=== PATIENT | male | born 1965 | race Caucasian/White ===

== ENCOUNTER 2016-10-04 20:22 | Emergency (ER) | payer BC ==
[2016-10-04 21:03] VITALS: BP 132/88
--- NOTE | 2016-10-04 21:18 | UC ---
Ear Complaint HPI - HPI Summary HPI Summary: Pt presents with c/o bilateral hearing loss and ear fullness. Pt has history of cerumen impaction - History of Current Complaint Chief Complaint: UCEar Stated Complaint: EARS PLUGGED Time Seen by Provider: 10/04/16 21:02 Hx Obtained From: Patient Onset/Duration: Sudden Onset, Lasting Days - 2 Severity Initially: Mild Severity Currently: Mild Associated Signs/Symptoms: Positive: Hearing Loss - Allergies/Home Medications Allergies/Adverse Reactions: Allergies Allergy/AdvReac Type Severity Reaction Status Date / Time No Known Allergies Allergy Verified 10/04/16 21:03 Home Medications: Home Medications Lisinopril TAB* [Prinivil TAB*] 5 mg PO DAILY 10/04/16 [History Confirmed ] PMH/Surg Hx/FS Hx/Imm Hx Previously Healthy: Yes - Surgical History Surgical History: Yes Surgery Procedure, Year, and Place: T&A. Hemroid removal x3 - Family History Known Family History: Positive: Cardiac Disease - Social History Occupation: Employed Full-time Lives: With Family Alcohol Use: None Substance Use Type: None Smoking Status (MU): Never Smoked Tobacco Have You Smoked in the Last Year: No Review of Systems Constitutional: Negative Skin: Negative Eyes: Negative ENT: Ear Ache - hearing loss Respiratory: Negative Cardiovascular: Negative Gastrointestinal: Negative Genitourinary: Negative Motor: Negative Neurovascular: Negative Musculoskeletal: Negative Neurological: Negative Psychological: Negative All Other Systems Reviewed And Are Negative: Yes Physical Exam Triage Information Reviewed: Yes Appearance: Well-Appearing Vital Signs: Initial Vital Signs Temp 97.6 F 10/04/16 20:56 Pulse 75 10/04/16 20:56 Resp 14 10/04/16 20:56 BP 132/88 10/04/16 20:56 Pulse Ox 99 10/04/16 20:56 Vital Signs Reviewed: Yes Eye Exam: Normal ENT Exam: Other - bialteral akbar, STEVE Vargas flushed bilateral ear with reported that large amount cerumen removed with ear irrigation Neck exam: Normal Respiratory Exam: Normal Cardiovascular Exam: Normal Musculoskeletal Exam: Normal Neurological Exam: Normal Psychological Exam: Normal Skin Exam: Normal Ear Complaint Course/Dx - Differential Dx/Diagnosis Differential Diagnosis/HQI/PQRI: Cerumen Impaction Provider Diagnoses: cerumen impaction bilateral Discharge - Discharge Plan Condition: Stable Disposition: HOME Patient Education Materials: Cerumen [place] (ED) Referrals: Doc Orellana MD [Primary Care Provider] - If Needed
== END 2016-10-04 21:42 | disposition home or self-care (01) ==
LOC: UCCORT 20:22
DX: H61.23 Impacted cerumen, bilateral (principal)
CPT/HCPCS: 99203; G0463

== ENCOUNTER 2017-05-17 09:32 | Emergency (ER) | payer BC ==
[2017-05-17 09:53] VITALS: BP 119/83
--- NOTE | 2017-05-17 10:16 | RAD ---
HISTORY: Left second toe pain COMPARISONS: None VIEWS: 3, Frontal, lateral, and oblique views of the second digit of left foot FINDINGS: BONE DENSITY: Normal. BONES: There is no displaced fracture. JOINTS: There is no arthropathy. ALIGNMENT: There is no dislocation. SOFT TISSUES: Unremarkable. OTHER FINDINGS: None. IMPRESSION: NO ACUTE OSSEOUS INJURY. IF SYMPTOMS PERSIST, RECOMMEND REPEAT IMAGING.
--- NOTE | 2017-05-17 10:27 | UC ---
Lower Extremity/Ankle HPI - HPI Summary HPI Summary: pain left 2nd toe x 2 days the toe is red , swollen tender no recent injury , had an injury to this toe few years ago and thinks it might be broken - History of Current Complaint Chief Complaint: UCLowerExtremity Stated Complaint: LEFT SECOND TOE INJURY Time Seen by Provider: 05/17/17 09:41 Hx Obtained From: Patient Onset/Duration: Gradual Onset, Lasting Days - 2, Still Present Severity Initially: Moderate Severity Currently: Moderate Pain Intensity: 2 Aggravating Factor(s): Standing, Ambulation Alleviating Factor(s): Rest, Elevation Able to Bear Weight: Yes - Allergies/Home Medications Allergies/Adverse Reactions: Allergies Allergy/AdvReac Type Severity Reaction Status Date / Time No Known Allergies Allergy Verified 05/17/17 09:50 Home Medications: Home Medications Ibuprofen 400 mg PO 05/17/17 [History] PMH/Surg Hx/FS Hx/Imm Hx Cardiovascular History: Hypertension - Surgical History Surgical History: Yes Surgery Procedure, Year, and Place: T&A. Hemroid removal x3 - Family History Known Family History: Positive: Cardiac Disease - Social History Alcohol Use: Rare Substance Use Type: None Smoking Status (MU): Never Smoked Tobacco Have You Smoked in the Last Year: No Review of Systems Constitutional: Negative Skin: Negative Eyes: Negative ENT: Negative Respiratory: Negative Cardiovascular: Negative Is Patient Immunocompromised?: No All Other Systems Reviewed And Are Negative: Yes Physical Exam Triage Information Reviewed: Yes Appearance: Well-Appearing, No Pain Distress, Well-Nourished Vital Signs: Initial Vital Signs Temp 98.6 F 05/17/17 09:45 Pulse 85 05/17/17 09:45 Resp 20 05/17/17 09:45 BP 119/83 05/17/17 09:45 Pulse Ox 98 05/17/17 09:45 Vital Signs Reviewed: Yes Eye Exam: Normal Eyes: Positive: Conjunctiva Clear ENT: Positive: Normal ENT inspection, Hearing grossly normal, Pharynx normal Neck: Positive: Supple, Nontender, No Lymphadenopathy Respiratory: Positive: Chest non-tender, Lungs clear, Normal breath sounds Cardiovascular: Positive: RRR, No Murmur, Pulses Normal Musculoskeletal Exam: Normal Skin: Positive: Other - left 2nd toe : + paronychia, + erythema, swellen , tender Lower Extremity Course/Dx - Differential Dx/Diagnosis Provider Diagnoses: paronychia left toe Discharge - Sign-Out/Discharge Documenting (check all that apply): Discharge - Discharge Plan Condition: Stable Disposition: HOME Prescriptions: Cephalexin CAP* [Keflex CAP*] 500 mg PO TID #21 cap Patient Education Materials: [place] (ED) Referrals: Doc Orellana MD [Primary Care Provider] - If Needed - Billing Disposition and Condition Condition: STABLE Disposition: HOME
== END 2017-05-17 10:27 | disposition home or self-care (01) ==
LOC: UCCORT 09:32
DX: L03.032 Cellulitis of left toe (principal)
CPT/HCPCS: 99212; G0463

== ENCOUNTER 2018-02-08 17:22 | Emergency (ER) | payer BC, OTHER ==
--- NOTE | 2018-02-08 18:05 | UC ---
Back Pain HPI - HPI Summary HPI Summary: 52-year-old male comes in to clinic today with a chief complaint of low back pain is radiating down the left leg. This started several days ago. He's had this pain on and off for years. No weakness or numbness no difficulty controlling urine or bowels. Pain gets worse when he stands straight upright or when he lays flat. It is less severe when he is slightly bent forward. No recent trauma. - History of Current Complaint Stated Complaint: LOWER BACK PAIN Time Seen by Provider: 02/08/18 17:51 - Allergies/Home Medications Allergies/Adverse Reactions: Allergies Allergy/AdvReac Type Severity Reaction Status Date / Time No Known Allergies Allergy Verified 02/08/18 18:01 Home Medications: Home Medications Allopurinol TAB* [Zyloprim 300 MG TAB*] 300 mg PO DAILY 02/08/18 [History Confirmed 02/08/18] Ibuprofen TAB* [Advil TAB*] 600 mg PO Q6H PRN 02/08/18 [History Confirmed ] PMH/Surg Hx/FS Hx/Imm Hx Previously Healthy: Yes Cardiovascular History: Hypertension - Surgical History Surgical History: Yes Surgery Procedure, Year, and Place: T&A. Hemroid removal x3 - Family History Known Family History: Positive: Cardiac Disease - Social History Alcohol Use: Rare Substance Use Type: None Smoking Status (MU): Never Smoked Tobacco Have You Smoked in the Last Year: No Review of Systems All Other Systems Reviewed And Are Negative: Yes Constitutional: Positive: Negative Skin: Positive: Negative Eyes: Positive: Negative ENT: Positive: Negative Respiratory: Positive: Negative Cardiovascular: Positive: Negative Gastrointestinal: Positive: Negative Genitourinary: Positive: Negative Motor: Positive: Negative Neurovascular: Positive: Negative Musculoskeletal: Positive: Other: - SEE HPI Neurological: Positive: Negative Psychological: Positive: Negative Is Patient Immunocompromised?: No Physical Exam Triage Information Reviewed: Yes Appearance: Well-Appearing, Well-Nourished, Pain Distress - MILD WITH LOW BACK ROM Vital Signs Reviewed: Yes Eye Exam: Normal Eyes: Positive: Conjunctiva Clear Neck exam: Normal Neck: Positive: Supple Respiratory: Positive: Lungs clear, Normal breath sounds, No respiratory distress Cardiovascular: Positive: RRR Abdomen Description: Positive: Nontender, Soft. Negative: CVA Tenderness (R), CVA Tenderness (L) Musculoskeletal: Positive: Strength Intact, ROM Intact, Other: - Patient tender to palpation lower lumbar and into the left buttock and the sciatic distribution. Feet ankles hips and knees have full range of motion and full strength no sensation deficits. Neurological Exam: Normal Neurological: Positive: Alert, Muscle Tone Normal Psychological Exam: Normal Psychological: Positive: Age Appropriate Behavior Skin Exam: Normal Back Pain Course/Dx - Differential Dx/Diagnosis Provider Diagnosis: Low back pain, Lumbar radiculopathy, Left sided sciatica Discharge - Sign-Out/Discharge Documenting (check all that apply): Patient Departure All imaging exams completed and their final reports reviewed: No Studies - Discharge Plan Condition: Stable Disposition: HOME Prescriptions: Cyclobenzaprine TAB* [Flexeril 10 MG TAB*] 10 mg PO TID PRN #15 tab MDD 3 PRN Reason: Pain Patient Education Materials: Acute Low Back Pain (ED), Lower Back Exercises (ED ), Lumbar Radiculopathy (ED), Sciatica (ED) Referrals: Axel Mcgill MD [Primary Care Provider] - Additional Instructions: FOLLOW UP WITH YOUR DOCTOR IF NOT COMPLETELY IMPROVED. GET RECHECKED FOR ANY WORSENING OF YOUR CONDITION; WEAKNESS, NUMBNESS, DIFFICULTY CONTROLLING BOWEL OR BLADDER OR QUESTIONS OR CONCERNS. - Billing Disposition and Condition Condition: STABLE Disposition: Home
[2018-02-08 18:11] VITALS: BP 120/91
== END 2018-02-08 18:15 | disposition home or self-care (01) ==
LOC: UCCORT 17:22
DX: M54.5 Low back pain (principal); M54.16 Radiculopathy, lumbar region; M54.32 Sciatica, left side; I10 Essential (primary) hypertension
CPT/HCPCS: 99212; G0463

== ENCOUNTER 2018-02-13 09:24 | Emergency (ER) | payer BC ==
[2018-02-13 11:23] VITALS: BP 136/92
--- NOTE | 2018-02-13 11:25 | UC ---
Back Pain HPI - HPI Summary HPI Summary: Pt with Left low back pain and spasm with radiation to left buttock and left LE Pt states spasm, no weakness. no bowel or bladder changes pt was treated at for same - states given flexeril with mild improvement. Pt taking 400mg motrin 2-3 tmes a day with little improvement Has not seen PCP - called today not available. pt states can't sleep second to pain. no trauma Pt with similar sx approx 5 years ago- no back surgery pt's medications reviewed this visit - History of Current Complaint Chief Complaint: UCBackPain Stated Complaint: BACK PAIN Time Seen by Provider: 02/13/18 11:25 Hx Obtained From: Patient Onset/Duration: Gradual Onset Timing: Constant Pain Intensity: 10 Character: Sharp, Spasmodic Aggravating Factor(s): Movement, Walking Alleviating Factor(s): Rest, Position, Other - flexeril - Allergies/Home Medications Allergies/Adverse Reactions: Allergies Allergy/AdvReac Type Severity Reaction Status Date / Time No Known Allergies Allergy Verified 02/13/18 11:20 PMH/Surg Hx/FS Hx/Imm Hx Previously Healthy: Yes - Surgical History Surgical History: Yes Surgery Procedure, Year, and Place: T&A. Hemroid removal x3 - Family History Known Family History: Positive: Cardiac Disease, Non-Contributory - Social History Occupation: Employed Full-time Alcohol Use: Rare Substance Use Type: None Smoking Status (MU): Never Smoked Tobacco Have You Smoked in the Last Year: No Review of Systems All Other Systems Reviewed And Are Negative: Yes Neurovascular: Positive: Other - radiation LLE Musculoskeletal: Positive: Other: - back Physical Exam - Summary Physical Exam Summary: Vital Signs Reviewed: Yes A+Ox3, discomfort with movement Eyes: Conjunctiva Clear, ERIS. EOM intact and full ENT: Hearing grossly normal TM x 2 clear, mmoist, uvula midline, no exudate, no erythema Neck: Positive: Supple Respiratory: Positive: No respiratory distress, No accessory muscle use + CTA throughout no w/r Cardiovascular: RRR nl s1, s2 no m/r CBT <2 sec abd soft + BS nt/nd no guarding, no distension Musculoskeletal Exam: No spinous process pain c/t/l/s + TTP left paraspinal spasm + TTP left buttock + SLE + flex/ext knee, ankle with pain in back Neurological: Positive: Alert, + sensation throughout 2+ patella without clonus + great toe extension, + sensation b/l LE Psychological: Positive: Normal Response To Family Skin: Positive: no rash, no ecchymosis Triage Information Reviewed: Yes Vital Signs: Initial Vital Signs Temp 97.6 F 02/13/18 11:17 Pulse 81 02/13/18 11:17 Resp 16 02/13/18 11:17 BP 136/92 02/13/18 11:17 Pulse Ox 100 02/13/18 11:17 Back Pain Course/Dx - Course Course Of Treatment: Pt with left low back with radiation to left buttock and left lateral thigh. on exam pt with stable VSS. palpable muscle spasm. CSM intact and full. Motrin/apap Q3hr. codeine QHS- istop check - precautions given. heat, stretch. flexeril. PT referral. PCP f/u - Differential Dx/Diagnosis Provider Diagnosis: Lumbar paraspinal muscle spasm, Sciatica Discharge - Sign-Out/Discharge Documenting (check all that apply): Patient Departure All imaging exams completed and their final reports reviewed: No Studies - Discharge Plan Condition: Stable Disposition: HOME Prescriptions: Acetaminop/Codeine 30 MG TAB* [Tylenol/Codeine 30 MG TAB*] 1 - 2 tab PO Q6H PRN #10 tab MDD 8 PRN Reason: Severe Pain Cyclobenzaprine TAB* [Flexeril 10 MG TAB*] 10 mg PO BID PRN #10 tab PRN Reason: back spasm methylPREDNISolone [Medrol Dosepak 4 MG*] 1 mg PO .SEE YESSICA INSTRUCTION #1 tab Patient Education Materials: Sciatica (ED), Lumbar Radiculopathy (ED) Referrals: Axel Mcgill MD [Primary Care Provider] - Additional Instructions: - Okay to alternate ibuprofen (Advil, Motrin) 600mg and Tylenol product ( Tylenol or Tylenol with codeine) every 3hours as needed for pain. Take with food. Do NOT take for more than 4-[address], operate machinery or drink alcohol while taking [place]. This medication may cause constipation - use a stool softner as needed -Take flexeril - muscle relaxer as prescribed - do not take Flexeril and Codeine product at the same time - this may cause significant drowsiness -Apply moist heat to your back for 20 minutes at a time, 4-5 times a day. Once your muscles are warm, slow gentle stretching exercises are important -Contact your doctor to arrange a follow-up appointment this week. - take prednisone as prescribed - you have been given a referral to physical therapy - call your physical therapist to schedule a follow-up appointment -If you pain is uncontrolled - go to an emergency department for further treatment - Billing Disposition and Condition Condition: STABLE Disposition: Home
[2018-02-13] MEDS ORDERED: Acetaminophen TAB* 325 MG PO ONE (11:42)
[2018-02-13] MEDS ORDERED: Cyclobenzaprine TAB* 10 MG PO ONE (11:43)
== END 2018-02-13 12:14 | disposition home or self-care (01) ==
LOC: UCCORT 09:24
DX: M62.830 Muscle spasm of back (principal); M54.32 Sciatica, left side
CPT/HCPCS: 99212; A9270-GY; G0463